=== PATIENT | female | born 2000 | race Caucasian/White ===

== ENCOUNTER → 2018-01-05 | Outpatient (REF) | payer OTHER | LOC: M SFHCLERA 18:30 | DX: J02.9 Acute pharyngitis, unspecified (principal) ==

== ENCOUNTER 2018-02-20 13:43 | Inpatient (IN) | payer OTHER ==
[2018-02-20 14:26] LABS: HEMATOCRIT 37.9 % (36.0-47.0); HEMOGLOBIN 11.9 g/dl (12.0-15.5); MEAN CORPUSCULAR HEMOGLOBIN 25.2 pg (27.0-33.0); MEAN CORPUSCULAR HGB CONC 31.4 g/dl (32.0-36.5); MEAN CORPUSCULAR VOLUME 80.1 fl (80.0-96.0); PLATELET COUNT, AUTOMATED 334 10^3/uL (150-450); RED BLOOD COUNT 4.73 10^6/uL (4.00-5.40); RED CELL DISTRIBUTION WIDTH 14.6 % (11.5-14.5); WHITE BLOOD COUNT 5.6 10^3/uL (4.0-10.0)
[2018-02-20] MEDS: CHARCOAL ACTIVATED LIQUID 25 GM/120 ML BTL PO (14:29)
[2018-02-20] MEDS: NS 1,000 ML IV (14:29)
[2018-02-20 14:46] LABS: AMPHETAMINES LEVEL URINE NEGATIVE (NEGATIVE); BARBITURATES URINE NEGATIVE (NEGATIVE); BENZODIAZEPINES URINE NEGATIVE (NEGATIVE); CANNABINOIDS URINE NEGATIVE (NEGATIVE); COCAINE METABOLITE URINE NEGATIVE (NEGATIVE); METHADONE URINE NEGATIVE (NEGATIVE); OPIATES URINE NEGATIVE (NEGATIVE); PHENCYCLIDINE URINE NEGATIVE (NEGATIVE)
[2018-02-20 14:52] LABS: CONTROL LINE HCG INT CTR LINE PRESENT; HCG, SERUM QUALITATIVE NEGATIVE (NEGATIVE)
[2018-02-20 14:54] LABS: ALBUMIN 3.9 GM/DL (3.2-5.2); ALBUMIN/GLOBULIN RATIO 0.95 (1.00-1.93); ALKALINE PHOSPHATASE 84 U/L (45-117); ALT/SGPT 19 U/L (12-78); ANION GAP 8 MEQ/L (8-16); AST/SGOT 12 U/L (7-37); BILIRUBIN,DIRECT 0.1 MG/DL (0.0-0.2); BILIRUBIN,TOTAL 0.5 MG/DL (0.2-1.0); BLOOD UREA NITROGEN 9 MG/DL (7-18); CALCIUM LEVEL 8.9 MG/DL (8.5-10.1); CARBON DIOXIDE LEVEL 26 MEQ/L (21-32); CHLORIDE LEVEL 110 MEQ/L (98-107); CREATININE FOR GFR 0.57 MG/DL (0.55-1.30); ETHYL ALCOHOL (ETHANOL) < 0.003 % (0.000-0.010); GLUCOSE, FASTING 94 MG/DL (70-100); POTASSIUM SERUM 4.1 MEQ/L (3.5-5.1); SALICYLATE LEVEL < 1.7 MG/DL (5.0-30.0); SODIUM LEVEL 144 MEQ/L (136-145); THYROID STIMULATING HORMONE 0.936 uIU/ML (0.463-3.98)
[2018-02-20 15:08] LABS: ACETAMINOPHEN LEVEL < 2.0 UG/ML (10.0-30.0)
[2018-02-20] MEDS ORDERED: OLANZapine ORAL DISINTEGRATING TAB 5MG PO (22:30)
[2018-02-20] MEDS ORDERED: MOM 30ML SUSPENSION UDC PO (22:30)
[2018-02-20] MEDS ORDERED: MAALOX 30 ML SUSP *UDC PO (22:30)
[2018-02-20] MEDS ORDERED: ACETAMINOPHEN TAB 650MG DOSE (2X325MG) PO (22:30)
[2018-02-21] MEDS ORDERED: ALBUTEROL 90 MCG/ACT 8GM HFA INHALER INH (09:45)
[2018-02-21] MEDS: traZODone 50 MG TAB PO (21:17)
== END 2018-02-22 10:24 | disposition home or self-care (01) | DRG 881 ==
LOC: M ED 13:43 → M ED INP 19:47 → M PSY 21:16
DX: F43.21 Adjustment disorder with depressed mood (principal); R45.851 Suicidal ideations; J45.909 Unspecified asthma, uncomplicated; Z91.018 Allergy to other foods; Z91.5 Personal history of self-harm

== ENCOUNTER → 2020-07-21 | Outpatient (CLI) | payer OTHER | LOC: M WUC 13:54 | PROVIDERS: ATTEND Physician Assistant Medical | DX: N91.2 Amenorrhea, unspecified (principal) ==

== ENCOUNTER → 2020-07-29 | Outpatient (REF) | payer OTHER ==
[2020-07-29 17:35] LABS: HEMATOCRIT 37.9 % (36.0-47.0); MEAN CORPUSCULAR HEMOGLOBIN 26.8 pg (27.0-33.0); MEAN CORPUSCULAR HGB CONC 31.7 g/dl (32.0-36.5); MEAN CORPUSCULAR VOLUME 84.8 fl (80.0-96.0); PLATELET COUNT, AUTOMATED 314 10^3/uL (150-450); RED BLOOD COUNT 4.47 10^6/uL (4.00-5.40); WHITE BLOOD COUNT 6.4 10^3/uL (4.0-10.0)
[2020-07-29 18:47] LABS: HCG, SERUM QUANTITATIVE 13896 MIU/ML; HEPATITIS C VIRUS ABY INDEX < 0.0 INDEX (<0.8); HIV 1&2 SCREEN CENTAUR NEGATIVE (NEGATIVE)
== END ==
LOC: M LAB REF 16:07
PROVIDERS: ATTEND Obstetrics & Gynecology
DX: O36.80X0 Pregnancy with inconclusive fetal viability, not applicable or unspecified (principal)

== ENCOUNTER → 2020-08-12 | Outpatient (CLI) | payer OTHER ==
--- NOTE | 2020-08-13 05:39 | REP ---
INDICATION: DATING/VIABILITY COMPARISON: None. TECHNIQUE: Transabdominal 1st trimester obstetrical ultrasound with color Doppler evaluation. FINDINGS: Single live early intrauterine is appreciated. Gestational sac with yolk sac and pole identified. Bartlett-rump length of 16 mm corresponds to 8 weeks 0 days gestational age with estimated date of delivery 03/24/2021. heart rate equals 156 beats per minute. Right corpus luteal cyst. IMPRESSION: Single live early intrauterine at 8 weeks 0 days gestational age. Complete anatomical assessment should be performed and 19-20 weeks. <Electronically signed by Duy Schafer > 08/13/20 [id number]
== END ==
LOC: M WHC 12:27
PROVIDERS: ATTEND Obstetrics & Gynecology
DX: O36.80X0 Pregnancy with inconclusive fetal viability, not applicable or unspecified (principal); Z3A.08 8 weeks gestation of pregnancy

== ENCOUNTER → 2020-11-02 | Outpatient (CLI) | payer OTHER ==
--- NOTE | 2020-11-02 14:46 | REP ---
INDICATION: ANATOMY COMPARISON: 08/12/2020 TECHNIQUE: Transabdominal obstetrical ultrasound with color Doppler evaluation. FINDINGS: Examination demonstrates a single live intrauterine in cephalic presentation. motion is identified by technologist. Placenta is noted anterior and grade 0 without evidence for placenta previa or abruption. Amniotic fluid volume is normal. Cervix measures 4.2 cm in length and appears closed.. Gestational age by LMP and 1st U/S 19 weeks 5 days with KEITH 03/24/2021. Gestational age by current measurements 20 weeks 0 days with EKITH 03/22/2021. FHR equals 143 beats per minute. BPD: 4.5 cm at 19 weeks 4 days HC: 17.0 cm at 19 weeks 4 days AC: 16.1 cm at 21 weeks 1 day FL: 3.2 cm at 19 weeks 6 days HL: 3.0 cm at 19 weeks 6 days HC/AC: 1.06 Estimated weight 354 grams (85thpercentile). Anatomical assessment demonstrates normal structures including cranium, choroid plexus, cavum, cerebellum/posterior fossa, facial features, lungs, four-chamber heart/ventricular outflow tracts, diaphragm, stomach, cord insertion/three-vessel cord, kidneys/bladder, spine, and extremities. IMPRESSION: Single live intrauterine in cephalic presentation demonstrating appropriate estimated weight and growth. Anatomical assessment is complete and normal. <Electronically signed by Duy Schafer > 11/02/20 [id number]
== END ==
LOC: M WHC 13:28
PROVIDERS: ATTEND Advanced Practice Midwife
DX: Z34.82 Encounter for supervision of other normal pregnancy, second trimester (principal); Z36.89 Encounter for other specified antenatal screening; Z3A.19 19 weeks gestation of pregnancy

== ENCOUNTER → 2021-01-05 | Outpatient (CLI) | payer OTHER ==
[2021-01-05 11:44] LABS: HEMATOCRIT 37.5 % (36.0-47.0); HEMOGLOBIN 11.6 g/dl (12.0-15.5); MEAN CORPUSCULAR HEMOGLOBIN 27.9 pg (27.0-33.0); MEAN CORPUSCULAR HGB CONC 30.9 g/dl (32.0-36.5); MEAN CORPUSCULAR VOLUME 90.1 fl (80.0-96.0); PLATELET COUNT, AUTOMATED 288 10^3/uL (150-450); RED BLOOD COUNT 4.16 10^6/uL (4.00-5.40); WHITE BLOOD COUNT 11.5 10^3/uL (4.0-10.0)
== END ==
LOC: M WUC 08:40
PROVIDERS: ATTEND Advanced Practice Midwife
DX: Z34.02 Encounter for supervision of normal first pregnancy, second trimester (principal); Z36.89 Encounter for other specified antenatal screening

== ENCOUNTER → 2021-02-25 | Outpatient (REF) | payer OTHER | LOC: M LAB REF 16:47 | PROVIDERS: ATTEND Obstetrics & Gynecology | DX: Z34.03 Encounter for supervision of normal first pregnancy, third trimester (principal) ==

== ENCOUNTER 2021-03-17 08:44 | Inpatient (IN) | payer OTHER ==
[2021-03-17] VITALS (46 sets, daily range): BP systolic 100–161; BP diastolic 55–93
[~2021-03-17] VITALS: Ht 165.1 cm; Wt 94.2 kg
[2021-03-17] MEDS ORDERED: PRENTAB9 PO (09:06)
[2021-03-17] MEDS ORDERED: HOME MED LIST COMPLETE! XX SCH (09:10)
[2021-03-17] MEDS ORDERED: OXYTOCIN INJ 10 UNITS/ML VIAL (J2590) IM PRN (09:35)
[2021-03-17] MEDS ORDERED: OXYTOCIN DRIP 30 UNITS in IV 1 EA IV PRN (09:35)
[2021-03-17] MEDS ORDERED: LIDOCAINE 1% MDV 20ML VIAL INFIL PRN (09:35)
[2021-03-17] MEDS ORDERED: TRANEXAMIC ACID INJection 1,000 MG in NS 100 ML IV PRN (09:35)
[2021-03-17] MEDS ORDERED: METHYLERGONOVINE MALEATE 0.2 MG/ML VIAL (J2210) IM PRN (09:35)
[2021-03-17] MEDS ORDERED: OXYTOCIN DRIP 30 UNITS in IV 1 EA IV SCH (09:35)
[2021-03-17] MEDS: LR 1,000 ML IV SCH ×2 (10:26→16:31)
[2021-03-17 10:28] LABS: HEMATOCRIT 34.8 % (36.0-47.0); HEMOGLOBIN 11.1 g/dl (12.0-15.5); MEAN CORPUSCULAR HEMOGLOBIN 26.1 pg (27.0-33.0); MEAN CORPUSCULAR HGB CONC 31.9 g/dl (32.0-36.5); MEAN CORPUSCULAR VOLUME 81.7 fl (80.0-96.0); PLATELET COUNT, AUTOMATED 251 10^3/uL (150-450); RED BLOOD COUNT 4.26 10^6/uL (4.00-5.40); WHITE BLOOD COUNT 11.4 10^3/uL (4.0-10.0)
[2021-03-17] MEDS ORDERED: LR 1,000 ML IV ONE (14:05)
[2021-03-17] MEDS ORDERED: FENTANYL 2MCG/ML ROPIVACAINE 0.2% IN 0.9% NACL 100ML IVBAG As Ordered ONE (14:39)
[2021-03-17] MEDS ORDERED: LACTATED RINGER'S 1000 ML IV PRN (14:50)
[2021-03-17] MEDS ORDERED: NALOXONE INJ 0.4MG/1ML VIAL (J2310 PER 1MG) IV PRN (14:50)
[2021-03-17] MEDS ORDERED: REFRIGERATOR IV KEYS XX PRN (14:50)
[2021-03-17] MEDS ORDERED: ePHEDrine SULFATE 25 MG/5 ML(5MG/ML) SYRINGE IV PRN (14:50)
[2021-03-17] MEDS ORDERED: EPIDURAL COMMENT XX SCH (14:50)
[2021-03-17] MEDS ORDERED: FENTANYL/ROPIVACAINE/NACL BAG 100 ML EPIDURAL SCH (14:50)
[2021-03-17] MEDS ORDERED: EPIDURAL/PCA KEYS XX PRN (14:50)
[2021-03-17] MEDS ORDERED: ONDANSETRON 4MG/2ML VIAL IV PRN (14:50)
[2021-03-17] MEDS ORDERED: diphenhydrAMINE 50MG/ML VIAL (J1200) IV PRN (14:50)
--- NOTE | 2021-03-17 16:19 | HPE ---
HISTORY AND PHYSICAL DATE OF ADMISSION: 03/17/2021 Prachi is a 20-year-old, 1, para 0, at 39-1/7 weeks gestation, estimated date of confinement (EDC) of 03/23/2021 based on first-trimester ultrasound. She presents to labor and delivery today following report of spontaneous rupture of membranes, clear fluid at approximately 0430 a.m. She does report continued leakage and some mild cramping. Some pink bloody show. She denies heavy vaginal bleeding. The fetus has been active. Her care was initiated at [facility] in the first trimester. Her course has been uncomplicated. OBSTETRIC HISTORY: Prima . OBSTETRIC LABORATORY DATA: O positive, antibody screen negative, rubella immune, VDRL nonreactive. Urine culture no growth. Hepatitis B surface antigen negative. HIV negative. Hepatitis C antibody nonreactive. Gonorrhea and chlamydia negative. Gestational diabetic screening normal at 97, and her GBS is negative. PAST MEDICAL HISTORY: Noncontributory. SURGERIES: None. FAMILY HISTORY: Noncontributory. SOCIAL HISTORY: The patient is single; however, the father of the baby is at bedside and supportive. She is a nonsmoker. Denies alcohol and drug use. No history of sexual transmitted infections. She denies history of abuse, physical, sexual, and emotional. ALLERGIES: No known drug allergies. CURRENT MEDICATION: vitamin. OBJECTIVE: Temperature 98.5, pulse 100, respirations 18, blood pressure (BP) 119/57 upon arrival. She is alert and oriented times three. She does not appear in any distress. heart rate is 140 with moderate variability, positive accelerations, negative decelerations. Contractions are every 5 minutes. They do palpate mild. Her abdomen is gravid. Cephalic presentation. Estimated weight 7 pounds, confirmed by Winston's maneuver. Sterile speculum exam: Positive pooling. Positive Valsalva. Positive Nitrazine. Positive fern. Grossly ruptured. Sterile vaginal exam: 2 cm dilated, 80% effaced, -2 station. ASSESSMENT: Intrauterine at 39-1/7 weeks, heart rate category 1. Premature rupture of membranes. PLAN: Admit the patient to labor and delivery. Routine laboratories. Clear liquid diet. Out of bed ad aric. I plan to start intravenous (IV) Pitocin to augment her labor. The patient is requesting an epidural for her labor coping when she is uncomfortable. I did review risks, benefits, and alternatives. She and her partner's questions have been answered. She has been verbally consented for emergency surgery and blood products if they are necessary. I do anticipate active labor and a vaginal delivery.
[2021-03-17] MEDS ORDERED: METHYLERGONOVINE MALEATE 0.2 MG TAB PO PRN (20:50)
[2021-03-17] MEDS ORDERED: DIBUCAINE 1% OINTMENT 30GM TOP PRN (20:50)
[2021-03-17] MEDS ORDERED: DOCUSATE SODIUM 100MG CAPSULE PO PRN (20:50)
[2021-03-17] MEDS ORDERED: ACETAMINOPHEN 500 MG TAB PO PRN (20:50)
[2021-03-17] MEDS ORDERED: RHOGAM 300 MCG (1500 IU) INJ (J2790) IM SCH (20:50)
[2021-03-17] MEDS ORDERED: ACETAMINOPHEN TAB 650MG DOSE (2X325MG) PO PRN (20:50)
[2021-03-17] MEDS ORDERED: MEASLES,MUMPS,RUBELLA VACCINE INJ (MMR-II) (90707) SC SCH (20:50)
[2021-03-17] MEDS ORDERED: IBUPROFEN 600MG TAB PO PRN (20:50)
[2021-03-18] MEDS: IBUPROFEN 800 MG TAB PO PRN ×3 (02:08→19:56)
[2021-03-18 06:00] VITALS: BP 127/72
--- NOTE | 2021-03-18 06:22 | DN ---
DELIVERY NOTE DATE OF DELIVERY: 03/17/2021 TIME OF : GENDER: APGARS: LACERATIONS: ANESTHESIA: ESTIMATED BLOOD LOSS: COUNTS: DESCRIPTION OF DELIVERY: Prachi is a 20-year-old 1 para 1-0-0-1 now who was admitted to labor and delivery with premature rupture of membranes. IV Pitocin was started and labor did ensue. She used an epidural for her labor coping. She reached complete dilation at 1952. She pushed to a normal spontaneous vaginal delivery of a live male in OA position with restitution to ROT position with a right compound hand at 2009. There was a nuchal cord tight that was reduced with somersault maneuver at the time of delivery. The 's shoulders delivered with gentle down retraction and the corpus immediately followed. The 's mouth and nares was bulb suctioned and he was placed on the maternal abdomen crying and very active. The cord was clamped times two once pulsations ceased and cut by the father of the baby under my direction. Cord blood was obtained. Spontaneous expulsion of intact placenta with three-vessel cord by Butler mechanism was at 2017. Uterine hemostasis achieved with IV Pitocin rapid infusion and uterine fundal massage. Estimated blood loss: 350 mL. Perineum and vagina inspected and noted to have bilateral labial lacerations. The lacerations were repaired with 3-0 Vicryl Rapide in the usual fashion. Santo male weighed 8 pounds 6 ounces (3800 grams); 7 and 9. Mom is going to bottle feed her son and the family has named him Bradley. At the close of delivery, lap counts, needle counts and instrument counts were correct and verified.
[2021-03-18] MEDS: PRENATAL VITAMINS CHEWABLE TABLET PO SCH (11:19)
--- NOTE | 2021-03-18 11:27 | IPNPDOC ---
Text Note Date of Service The patient was seen on 03/18/21. NOTE Progress note S: No complaints. O: AVSS NAD Abdomen: Nontender fundus firm, soft Extremities: Nontender A/P: 20-year-old day #1 status post vaginal delivery. Routine care. Baby doing well VS,Fishbone, I+O VS, Fishbone, I+O Vital Signs Date Time Temp Pulse Resp B/P (MAP) Pulse Ox O2 Delivery O2 Flow Rate FiO2 03/18/21 06:00 97.9 78 16 127/72 (90) 98 Room Air I&O- Last 24 Hours up to 6 AM 03/18/21 06:00 Intake Total 3179 ml Output Total 1400 ml Balance 1779 ml YVETTE SILVA MD Mar 18, 2021 11:27
[2021-03-18 18:04] VITALS: BP 122/58
[2021-03-19 06:00] VITALS: BP 117/55
[2021-03-19] MEDS: PRENATAL VITAMINS CHEWABLE TABLET PO SCH (08:26)
[2021-03-19] MEDS ORDERED: BOOSTRIX/ADACEL VACCINE (DIPHTH/PERTUSS/ACELL/TETANUS) 0.5ML SYR IM ONE (09:00)
[2021-03-19] MEDS ORDERED: INFLUENZA QUADRIVALENT PF VACCINE 0.5ML SYRINGE IM ONE (09:00)
== END 2021-03-19 12:15 | disposition home or self-care (01) | DRG 807 ==
LOC: M LDO 08:44 → M LDI 09:32 → M OBS 22:15
PROVIDERS: ADMIT Advanced Practice Midwife; ATTEND Advanced Practice Midwife
PROC: 10E0XZZ Delivery of Products of Conception, External Approach (ICD-10-PCS; principal; 2021-03-17)
PROC: 0HQ9XZZ Repair Perineum Skin, External Approach (ICD-10-PCS; 2021-03-17)
DX: O42.02 Full-term premature rupture of membranes, onset of labor within 24 hours of rupture (principal); Z37.0 Single live birth; Z3A.39 39 weeks gestation of pregnancy; O64.5XX0 Obstructed labor due to compound presentation, not applicable or unspecified; O69.1XX0 Labor and delivery complicated by cord around neck, with compression, not applicable or unspecified; O70.0 First degree perineal laceration during delivery